=== PATIENT | female | born 1940 | race Caucasian/White ===

== ENCOUNTER → 2016-12-03 | Outpatient (CLI) | payer MEDICARE, BC ==
--- NOTE | 2016-12-03 16:01 | KCIC ---
INDICATION: Bilateral lumbar radiculopathy. Chronic low back pain, worsening in the last 3-4 weeks. TECHNIQUE: Sagittal T1, sagittal T2, sagittal STIR, axial T1, and axial T2 sequences are provided. Comparison is a CT from April 02, 2015. FINDINGS: There is 8 mm of anterolisthesis at L4-L5. There is otherwise no malalignment. There is an acute compression fracture with edema involving the superior endplate of L1. Collapse is less than 25 percent. Retropulsion is 4 mm. Vertebral body height otherwise is maintained throughout the lumbar spine. There is no worrisome marrow lesion. There is diffuse disc desiccation. The conus medullaris is normal in signal intensity and in position. Subcutaneous edema is noted. A few sacral perineural cysts are noted. The numbering system assumes 5 lumbar type vertebral bodies. Findings by individual level are as follows: T12-L1: There is a disc bulge and facet hypertrophy with mild right foraminal narrowing. L1-L2: Disc bulge and mild facet and ligamentum flavum hypertrophy are noted with minimal foraminal narrowing. L2-L3: Disc bulge and mild facet and ligamentum flavum hypertrophy are noted without any canal or foraminal compromise. L3-L4: Disc bulge and moderate facet and ligamentum flavum hypertrophy are noted. There is mild to moderate canal stenosis and lateral recess narrowing. There is mild right foraminal narrowing. L4-L5: In addition to the anterolisthesis there is unroofing of the disc and there is facet hypertrophy. There is severe canal stenosis. Foraminal narrowing is mild. L5-S1: There is no canal or foraminal compromise. Infrarenal abdominal aortic aneurysm is partially included. Report of L1 acute compression fracture was called to Dasha in Dr. Jack's office at 1550 hours. IMPRESSION: 1. Acute L1 superior endplate compression fracture. 2. Degenerative changes in the lumbar spine are greatest at L4-L5. 3. Infrarenal abdominal aortic aneurysm, may have increased in size since the prior CT, aneurysm is not entirely included. Consider ultrasound. Electronically signed by: Michael Marshall MD (12/03/2016 3:58 PM) [facility]
== END | disposition home or self-care (01) ==
LOC: KCIC MRI 14:56
PROVIDERS: ATTEND Family Medicine
DX: M51.16 Intervertebral disc disorders with radiculopathy, lumbar region (principal)
CPT/HCPCS: 72148

== ENCOUNTER → 2016-12-25 | Outpatient (CLI) | payer MEDICARE, BC ==
[~2016-12-25] MED LIST: ASPI-482 PO; ATOR10TA60 PO; CALC600T4 PO; CHOL400C2 PO; HYDR12.53 PO; IOHEXOL 180 MG/ML 10 ML VIAL. ONE; METO-269 PO; methylPREDNISolone ACETATE 40 MG/ML VIAL. ONE; methylPREDNISolone ACETATE 80 MG/ML VIAL. ONE
--- NOTE | 2016-12-25 23:45 | PAIN ---
DATE OF SERVICE: 12/25/2016 INITIAL CONSULTATION FOR PAIN CLINIC CHIEF COMPLAINT: Low back and bilateral hip and lower extremity pain. HISTORY OF PRESENT ILLNESS: This is a 76-year-old female who presents with history of pain in the low back and bilateral lower extremities, worse on the left than the right, for "many years", worse over the past 1 year; worse with activity, standing, walking and changing positions and better with lying down, but awakens her at night occasionally as well. The patient reports the pain is in the low back, radiating to the posterior gluteus, posterolateral thighs, lateral and anterior thigh, into the lower leg anteriorly, mostly on the left side. The patient reports it is constant, stabbing with some numbness and tingling. She has had some falls over the years, but nothing recently. No specific injury or action that she is aware of that has caused the pain. The patient reports that it awakens her from sleep 2-3 more times at night. It does affect her bowel and bladder control, in that, she feels that she has greater urgency, but has no actual incontinence. The patient reports it affects her ability to walk as well, but she is not using any assistive devices currently. The patient has had physical therapy as well as exercise and doing some exercises on her own currently. She takes Tylenol and Aleve, which both help and it has been about 3 days since she took the Tylenol, but took some Aleve this morning. The patient did have an MRI scan of the lumbar spine showing acute L1 superior endplate compression fracture; degenerative changes in the lumbar spine, greatest at L4 and L5, with severe canal stenosis at this level. The patient reports disability rating from 0-10, 10 being the worst and is a 7 with family, home responsibilities and recreation, 6 with social activity, 0 with self-care and 4 with life support activities. The patient reports no loss of motor function in the lower extremities, but still has some significant fatigability in the left leg greater than right with activity, greater than about 20 minutes, again better with resting, sitting or lying down. PAST MEDICAL HISTORY: Significant with hearing loss, cataracts, urinary tract infections, hypertension, arthritis and osteopenia. PAST SURGICAL HISTORY: Previous surgeries included D and C and bilateral cataract extractions with lens implants in 2016. CURRENT MEDICATIONS: Include hydrochlorothiazide, atorvastatin daily, baby aspirin and Toprol. ALLERGIES: The patient has no known drug allergies. FAMILY HISTORY: Significant for cancers, she is unsure what specific type. SOCIAL HISTORY: The patient does not smoke, does not use alcohol or other illicit or illegal drugs or other substances. She is , lives with her spouse, lives locally in [place], [place] and is currently retired. REVIEW OF SYSTEMS: The patient's review of systems is positive for those items mentioned in history of present illness. All systems reviewed and otherwise negative. It is complete, full and well documented on the patient's chart. PHYSICAL EXAMINATION: VITAL SIGNS: Today, the patient's blood pressure is 111/65, pulse 80, respirations 16 and temperature 97.8 degrees Fahrenheit. Height is 4 feet 9 inches. Weight is 118 pounds. GENERAL: The patient is awake, alert, oriented, appropriate, very pleasant demeanor. HEENT EXAMINATION: Shows normocephalic, atraumatic. Extraocular movements are intact and symmetrical. Oral cavity, mucous membranes are moist and pink. Dentition is intact. NECK EXAMINATION: Shows anterior throat supple, without palpable lymphadenopathy noted. Swallow reflex is symmetrical. CHEST: Shows normal on inspection. Breath sounds are clear to auscultation bilaterally. HEART: Shows S1 and S2 clear. ABDOMEN: Soft, nontender and nondistended. No palpable organomegaly. There is no rebound or guarding demonstrated. BACK: Shows spine grossly in the midline. Normal-appearing thoracic kyphosis and mild flattening of the lumbar lordotic curvature, but only mildly. The patient shows some moderate tenderness with palpation bilaterally in the lumbar paraspinous musculature, mostly in the middle and lower distribution, but only diffusely without radiation. The patient shows no tenderness over the lower spinous processes. However, the mid upper area shows some significant tenderness with palpation about the T12, L1-L2 region and the spinous processes with significant pain, with the patient drawing away from the examining hand with even moderate palpation. The patient shows no tenderness over the sacrum or sacroiliac region, shows good rotation and motion of the lumbar spine both laterally as well as extension and flexion, without significant pain reported. Lower extremities show deep tendon reflexes at 1+ in the patellar and tendo calcaneus tendons are equal. Motor exam is strong with 5/5 dorsiflexion, extension, quadriceps and hamstring flexion. Peripheral pulses are 1+ posterior tibial and dorsalis pedis pulses. No peripheral edema is noted. No clubbing, no cyanosis. Lower extremities are warm and dry to touch, equal in color and appearance. The patient does have a positive straight leg raise bilaterally at about 35-40 degrees, which is decreased with knee flexion, but not completely relieved. [place] and [place] maneuvers are negative bilaterally. The patient is able to stand and stand on her toes. She loses balance fairly easily. She is walking with a normal-appearing gait, however, does not appear to favor the right or the left lower extremities and not using any assistive devices to ambulate. IMPRESSION: 1. This is a 76-year-old female with a long history of low back pain, worse now over the past year or so with activity. 2. MRI scan of the lumbar spine as noted. 3. History of arthritis. 4. Hypertension. PLAN: Options were discussed with the patient and the patient's who accompanied her to visit today and we discussed continued physical therapies, medication managements and interventional techniques. She would like to pursue interventional techniques. We discussed a lumbar epidural steroid injection using description as well as anatomical models to describe the procedure. Risks were then discussed including, but not limited to bleeding, infection, possibility of epidural hematoma and subsequent neurological compromise, dural puncture, headaches, spinal cord and/or nerve damage, side effects of steroid medication and poor results regarding pain control. The patient understands and wishes to proceed. The patient will return to clinic in approximately 2 weeks for followup, was counseled on return appointment, activity level and side effects to be aware of. DIAGNOSES: Lumbar radiculopathy with lumbar spinal stenosis and lumbar degenerative disk disease. PROCEDURE: Lumbar epidural steroid injection, translaminar approach at the L4-L5 level using fluoroscopic guidance under sterile prep and drape using local anesthetic. MEDICATIONS INJECTED: Depo-Medrol 120 mg plus 10 mL preservative-free normal saline and 2 mL of Isovue for contrast. CONDITION ON DISCHARGE: Stable. The patient tolerated the procedure well, had no complications. PETER CASTELLON MD DR: RAYMOND/alexa JOB#: [id number] / [id number]
== END | disposition home or self-care (01) ==
LOC: PNCL 08:07
PROVIDERS: ATTEND Anesthesiology
DX: M51.16 Intervertebral disc disorders with radiculopathy, lumbar region (principal); M48.06 Spinal stenosis, lumbar region; I10 Essential (primary) hypertension; H91.90 Unspecified hearing loss, unspecified ear
CPT/HCPCS: 62323; J1030; J1040

== ENCOUNTER 2016-12-30 08:22 | Outpatient (CLI) | payer MEDICARE, BC ==
[2016-12-30] VITALS (7 sets, daily range): BP systolic 139–170; BP diastolic 71–84
[~2016-12-30] VITALS: Ht 144.8 cm; Wt 53.1 kg
[~2016-12-30 08:22] MED LIST changes: -IOHEXOL 180 MG/ML 10 ML VIAL. ONE; -methylPREDNISolone ACETATE 40 MG/ML VIAL. ONE; -methylPREDNISolone ACETATE 80 MG/ML VIAL. ONE
[2016-12-30 09:12] LABS: BASO % 0 % (0-3); EOS % 0 % (0-3); HEMATOCRIT 36.2 % (36.0-47.0); HEMOGLOBIN 12.6 g/dL (12.0-15.5); LYMPH # 2.1 x10^3/uL (1.0-4.8); LYMPH % 15 % (24-48); MEAN CORPUSCULAR HEMOGLOBIN 32 pg (25-35); MEAN CORPUSCULAR HGB CONC 35 g/dL (31-37); MEAN CORPUSCULAR VOLUME 92 fL (79-100); MONO % 9 % (0-9); NEUT % 76 % (31-73); PLATELET COUNT 193 x10^3/uL (140-400); RED BLOOD COUNT 3.96 x10^6/uL (3.50-5.40); RED CELL DISTRIBUTION WIDTH 13.4 % (11.5-14.5); WHITE BLOOD COUNT 13.9 x10^3/uL (4.0-11.0)
[2016-12-30 09:21] LABS: INR 0.9 (0.8-1.1); PROTHROMBIN TIME PATIENT 11.8 SEC (11.7-14.0)
[2016-12-30] MEDS ORDERED: IOHEXOL 300 MG/ML 50 ML VIAL. ONE (09:47)
[2016-12-30] MEDS ORDERED: LIDOCAINE 1% / SOD BICARB 8.4% 20 ML VIAL. IJ ONE ×2 (09:47→10:15)
[2016-12-30] MEDS ORDERED: fentaNYL PF VIAL 100 MCG/2 ML VIAL ONE (09:52)
[2016-12-30] MEDS ORDERED: MIDAZOLAM HCL/PF 5 MG/5 ML VIAL. ONE ×2 (09:52→09:57)
[2016-12-30] MEDS ORDERED: MIDAZOLAM HCL/PF 5 MG/5 ML VIAL. IV ONE (10:15)
[2016-12-30] MEDS ORDERED: fentaNYL PF VIAL 100 MCG/2 ML VIAL IV ONE (10:15)
--- NOTE | 2016-12-30 10:39 | PDOC ---
MODERATE SEDATION ASSESSMENT RISKS/ALTERNATIVES Risks/Alternatives Risks and alternatives of this type of sedation and procedure discussed with: RISK/ALTERNATIVES: Patient H & P ON CHART H & P H & P on chart and reviewed for co-morbid conditions and appropriate labs. H&P ON CHART: Yes STATUS PREG STATUS ASSESSED: Yes MEDS/ALLERGIES REVIEWED Meds/Allergies Reviewed Medications and Allergies including time and route of recently administered narcotics and sedatives. MEDS/ALLERGIES REVIEWED: Yes ASA RATING ASA RATING: II AIRWAY ASSESSMENT Airway Assessment Airway patency, oral function limitations, presence of caps, crowns, dentures, partials, and ability to extend neck assessed. AIRWAY ASSESSMENT: Yes MALLAMPATI SCORE MALLAMPATI SCORE: II PRE-SEDATION ASSESSMENT PRE-SEDATION ASSESSMENT: Yes LINDA WEEMS MD Dec 30, 2016 10:39
--- NOTE | 2016-12-30 10:41 | PDOC1 ---
History and Physical Date of Procedure Date of Admission History of Present Illness Reason for Visit 76 yo female with subacute debilitating compression fracture of L1 Past Medical History Past Medical History see nursing assessment Current Medications Current Medications Current Medications Iohexol (Omnipaque 300 Mg/ml) 50 ml STK-MED ONCE .ROUTE ; Start 12/30/16 at 09: 47; Stop 12/30/16 at 09:48; Status DC Lidocaine/Sodium Bicarbonate (Buffered Lidocaine 1%) 20 ml STK-MED ONCE IJ ; Start 12/30/16 at 09:47; Stop 12/30/16 at 09:48; Status DC Fentanyl Citrate (Fentanyl 2ml Vial) 100 mcg STK-MED ONCE .ROUTE ; Start at 09:52; Stop 12/30/16 at 09:53; Status DC Midazolam HCl (Versed) 5 mg STK-MED ONCE .ROUTE ; Start 12/30/16 at 09:52; Stop 12/30/16 at 09:53; Status DC Cefazolin Sodium 50 ml @ As Directed STK-MED ONCE IV ; Start 12/30/16 at 09:52; Stop 12/30/16 at 09:53; Status DC Midazolam HCl (Versed) 5 mg STK-MED ONCE .ROUTE ; Start 12/30/16 at 09:57; Stop 12/30/16 at 09:58; Status DC Lidocaine/Sodium Bicarbonate (Buffered Lidocaine 1%) 20 ml 1X ONCE IJ Last administered on 12/30/16 10:15; Start 12/30/16 at 10:15; Stop 12/30/16 at 10:20 ; Status DC Midazolam HCl (Versed) 5 mg 1X ONCE IV Last administered on 12/30/16 10:15; Start 12/30/16 at 10:15; Stop 12/30/16 at 10:20; Status DC Fentanyl Citrate (Fentanyl 2ml Vial) 100 mcg 1X ONCE IV Last administered on 10:15; Start 12/30/16 at 10:15; Stop 12/30/16 at 10:20; Status DC Cefazolin Sodium 50 ml @ 100 mls/hr 1X ONCE IV Last administered on 10:15; Start 12/30/16 at 10:15; Stop 12/30/16 at 10:44 Active Scripts Active Reported Vitamin D (Cholecalciferol (Vitamin D3)) 400 Unit Capsule 800 Unit PO DAILY Calcium (Calcium Carbonate) 600 Mg Tablet 600 Mg PO BID Hydrochlorothiazide Capsule (Hydrochlorothiazide) 12.5 Mg Capsule 1 Cap PO DAILY Atorvastatin Calcium 10 Mg Tablet 1 Tab PO DAILY Toprol Xl (Metoprolol Succinate) 50 Mg Tab.er.24h 1 Tab PO DAILY Aspir 81 (Aspirin) 81 Mg Tablet.dr 1 Tab PO DAILY Allergies Allergies: Coded Allergies: No Known Drug Allergies (Unverified , 12/25/16) Physical Exam Vital Signs Vital Signs Date Time Temp Pulse Resp B/P (MAP) Pulse Ox O2 Delivery O2 Flow Rate FiO2 12/30/16 10:15 16 100 Nasal Cannula 2.0 12/30/16 09:00 97.4 64 150/84 (106) 97.4 Other see nursing pre-op assessment Assessment Assessment Subacute debilitation L1 compression fracture Problems: Plan Plan kyphoplasty LINDA WEEMS MD Dec 30, 2016 10:41
--- NOTE | 2016-12-30 10:42 | PDOC ---
BRIEF OPERATIVE NOTE Pre-Op Diagnosis L1 compression fracture Post-Op Diagnosis same Procedure Performed L1 kyphoplasty Surgeon Shantal Anesthesia Type: Conscious Sedation Findings L1 compression fracture Complications No immediate LINDA WEEMS MD Dec 30, 2016 10:42
--- NOTE | 2016-12-30 12:16 | RAD ---
Procedure: Bipedicular kyphoplasty of L1 Clinical Indication: 76-year-old with acute debilitating wedge compression fracture of L1 Sedation: Conscious sedation was administered for 24 minutes. The patient was monitored by a qualified independent observer throughout the time of sedation. Please refer to the medical record for exact doses of medications utilized to achieve moderate sedation. Antibiotics: Antibiotic was administered intravenously within 1 hour of the procedure start time. Exposure: Kerma-Area Product: 654.7 uGym2 Contrast: None Sterility: All elements of maximal sterile barrier technique including the use of a cap, mask, sterile gown, sterile gloves, large sterile sheet, appropriate hand hygiene, and 2% chlorhexidine for cutaneous antisepsis (or acceptable alternative antiseptic per current guidelines) were followed for this procedure. Consent: The procedure was explained in its entirety to the patient or the patients designated claims customer service representative by a member of the treatment team, including a discussion of the risks, benefits and commonly accepted alternatives to the procedure, as well as the expected consequences of no therapy whatsoever. Discussion of the risks included, but was not limited to, those that are most frequent and those that are rare but possibly severe or life-threatening, as well as the possibility of unforeseen complications. Technique and Findings: Following informed consent, the patient was prepped and draped in usual sterile fashion. 1% lidocaine was used to achieve local anesthesia over the left paraspinal soft tissues at L1. Under fluoroscopic guidance, a 10-gauge needle was advanced in a left transpedicular fashion to the anterior aspect of the L1 vertebral body. This needle failed to cross midline however. Consequently, a second area was anesthetized on the right at L1 and a second needle was advanced, this time in a right transpedicular fashion to the anterior aspect of the L1 vertebral body. A balloon was then used to create a cavity within the vertebral body through both needles sequentially. Polymethylmethacrylate was then instilled sequentially under fluoroscopic guidance through both needles. Both needles were then removed and hemostasis was achieved with manual compression. Complications: No immediate Impression: 1. Fluoroscopic guided kyphoplasty at L1 as described
== END 2016-12-30 13:15 | disposition home or self-care (01) ==
LOC: INTRAD 08:22
PROVIDERS: ATTEND Surgery
DX: S32.010A Wedge compression fracture of first lumbar vertebra, initial encounter for closed fracture (principal); X58.XXXA Exposure to other specified factors, initial encounter; Y93.89 Activity, other specified; Y92.89 Other specified places as the place of occurrence of the external cause; Y99.9 Unspecified external cause status; E78.00 Pure hypercholesterolemia, unspecified; I10 Essential (primary) hypertension; Z87.440 Personal history of urinary (tract) infections; Z87.39 Personal history of other diseases of the musculoskeletal system and connective tissue
CPT/HCPCS: 22514; 36415; 85025; 85610; 99152; 99153; C1758; C1892; J0690; J2250; J3010

== ENCOUNTER → 2017-01-08 | Outpatient (CLI) | payer MEDICARE, BC ==
[2016-12-30 12:29] VITALS: BP 159/81
[~2017-01-08] MED LIST changes: +PSYL0.5215 PO
--- NOTE | 2017-01-08 10:49 | PAIN ---
DATE OF SERVICE: 01/08/2017 DIAGNOSES: Lumbar radiculopathy with lumbar degenerative disk disease and lumbar spinal stenosis. HISTORY OF PRESENT ILLNESS: The patient is a 76-year-old female who returns for followup status post lumbar epidural steroid injection x 1 and had L1 kyphoplasty done since her visit as well. The patient reports overall she is about 75% better. Still some pain in her low back and right side of it, but much improved. The patient reports she has been increasing her activity, been sleeping better at night, rates her pain as a 3 on a scale of 10 at its worst and at its least. She is doing much better. The patient is very pleased with her progress, reports she is sleeping 8 hours a night. No difficulty with walking, standing, still some pain in the low back and again on the right side to some extent, but much improved as it was before the injection and her kyphoplasty. The patient reports no new motor or sensory deficits, no new bowel or bladder incontinence or other complaints. PHYSICAL EXAMINATION: VITAL SIGNS: Today, the patient's blood pressure 117/76, pulse 64, respirations are 20, temperature 97.5 degrees Fahrenheit, weight is 119 pounds. GENERAL: The patient is awake, alert, oriented, appropriate, very pleasant demeanor. HEENT: Head shows normocephalic, atraumatic. Extraocular movements are intact, symmetrical. Oral cavity, mucous membranes are moist and pink. Dentition is intact. NECK: Shows anterior throat is supple. Swallow reflex is symmetrical. CHEST: Shows normal on inspection. Breath sounds clear to auscultation bilaterally. HEART: Shows S1 and S2 clear. No murmurs auscultated. ABDOMEN: Soft, nontender, nondistended. No palpable organomegaly. There is no rebound or guarding demonstrated. BACK: Shows spine grossly midline. Slight exaggeration of thoracic kyphosis and mild flattening of lumbar lordotic curvature. Lumbar paraspinous muscle shows symmetrical on inspection with palpation. She has only very mild tenderness with palpation in the middle and lower distribution of paraspinous muscles diffusely. The patient has good rotational motion of the lumbar spine both laterally as well as extension and flexion without difficulty. No tenderness over the sacrum or sacroiliac regions. EXTREMITIES: The patient's lower extremities showed deep tendon reflexes 1+ in the patellar and tendo calcaneus tendons. Motor exam is strong with 5/5 dorsiflexion and extension. Options were discussed with the patient. The patient's old chart was reviewed as her current medication regimen updated. Current review of systems updated today as well. We will hold on any further injections at this time as she is doing much better. The patient encouraged to do some stretching and strengthening exercises. She is also going to the pool at the [facility] near her home in [place]. The patient will return to the clinic on an as needed basis at this time. PETER CASTELLON MD DR: RAYMOND/alexa JOB#: [id number] / [id number]
== END | disposition home or self-care (01) ==
LOC: PNCL 08:47
PROVIDERS: ATTEND Anesthesiology
DX: M51.16 Intervertebral disc disorders with radiculopathy, lumbar region (principal); M48.06 Spinal stenosis, lumbar region
CPT/HCPCS: G0463